=== PATIENT | female | born 1980 | race African-American/Black ===

== ENCOUNTER 2022-04-26 19:14 | Emergency (ER) | payer OTHER ==
[2022-04-26] MEDS ORDERED: Acetaminophen 500 MG TAB ONE (20:21)
[2022-04-26] MEDS ORDERED: Ondansetron PF 4 MG/2 ML Vial ONE (20:22)
[2022-04-26 20:41] LABS: #Monocytes 0.2 10x3/uL (0.0-1.1); #Neutrophils 1.6 10x3/uL (1.5-8.4); %Basophils 0.4 % (0.0-2.0); %Lymphocytes 27.2 % (18.0-47.0); %Monocytes 7.8 % (0.0-10.0); %Neutrophils 64.2 % (40.0-75.0); Hemoglobin 12.5 g/dL (12.0-15.5); Mean Corpuscular HGB CONC 35.1 g/dL (32.0-36.0); Mean Corpuscular Hemoglobin 25.5 pg (27.0-33.0); Mean Corpuscular Volume 72.7 fl (81.6-98.3); Mean Platelet Volume 10.2 fl (7.4-10.4); Platelet Count 136 10x3/uL (150-450); RBC Distribution Width 15.6 % (11.5-14.5); White Blood Cell (WBC) Count 2.4 10x3/uL (3.5-10.5)
[2022-04-26 20:50] LABS: BHCG - Serum Negative (NEGATIVE); Pregs Control Background? CLEAR/WHITE (CLR/WHITE); Pregs Control Bar Appear? YES (CONTROL BAR)
[2022-04-26 20:55] LABS: ALT (SGPT) 22 U/L (8-55); AST (SGOT) 40 U/L (5-34); Albumin 4.3 g/dL (3.5-5.0); Alkaline Phosphatase 63 U/L (40-110); Anion Gap 17 mmol/L (10-20); BUN (Urea Nitrogen) 20 mg/dL (7.0-18.7); Bilirubin, Total 0.4 mg/dL (0.2-1.2); Calc. Creatinine Clearance 0 mL/min (70-130); Calcium 9.1 mg/dL (7.8-10.44); Carbon Dioxide 18 mmol/L (22-29); Chloride 101 mmol/L (98-107); Estimated GFR 60; Globulin 3.5 g/dL (2.4-3.5); Glucose 82 mg/dL (70-105); Potassium 4.1 mmol/L (3.5-5.1); Protein, Total 7.8 g/dL (6.0-8.3); Sodium 132 mmol/L (136-145)
[2022-04-26 21:42] LABS: Bilirubin Neg (Negative); Blood, Urine 150 (Negative); Clarity Clear (Clear); Glucose, Urine (Dipstick) Normal (Negative); Ketone, Urine 150 mg/dL (Negative); Leukocyte Negative (Negative); Nitrite Negative (Negative); Protein, Urine (Dipstick) 30 mg/dl (Neg-Trace)
[2022-04-26 21:50] LABS: RBC/HPF 0-3 HPF (0-3)
[2022-04-26 21:51] LABS: Bacteria/HPF 1+ HPF (None Seen); Mucous/LPF 1+ LPF (<2+); WBC/HPF 0-3 HPF (0-3)
== END 2022-04-26 22:08 | disposition home or self-care (01) ==
LOC: CSHERS 19:14
DX: U07.1 COVID-19 (principal)
CPT/HCPCS: 36415; 71045; 80053; 81003; 81015; 83690; 84484; 84703; 85025; 93005; 96374; J2405

== ENCOUNTER 2023-09-20 10:30 | Emergency (ER) | payer BC, OTHER ==
[2023-09-20] MEDS ORDERED: Lidocaine 1% (PF) 30 ML VIAL ONE (11:18)
[2023-09-20] MEDS ORDERED: Bacitracin 1 PK ONE (11:19)
[2023-09-20] MEDS ORDERED: Boostrix 0.5 ML (Tdap) VIAL (>/=7 yrs of age) ONE (11:19)
== END 2023-09-20 12:39 | disposition home or self-care (01) ==
LOC: CSHERS 10:30
DX: S61.101A Unspecified open wound of right thumb with damage to nail, initial encounter (principal); W17.89XA Other fall from one level to another, initial encounter; Y93.41 Activity, dancing; Z21 Asymptomatic human immunodeficiency virus [HIV] infection status; Z23 Encounter for immunization
CPT/HCPCS: 11730; 90471; 90715; J2001

== ENCOUNTER 2024-07-16 20:10 | Emergency (ER) | payer BC, OTHER ==
[2024-07-16] MEDS ORDERED: Lorazepam 2 MG/ML VIAL ONE (20:34)
[2024-07-16 20:43] LABS: #Basophils 0.03 10x3/uL (0.0-0.2); #Eosinophils 0.12 10x3/uL (0.0-0.5); #Monocytes 0.58 10x3/uL (0.0-1.1); #Neutrophils 2.95 10x3/uL (1.5-8.4); %Basophils 0.5 % (0.0-2.0); %Eosinophils 1.9 % (0.0-6.0); %Lymphocytes 40.5 % (18.0-47.0); %Monocytes 9.3 % (0.0-10.0); %Neutrophils 47.5 % (40.0-75.0); Hematocrit 39.2 % (34.9-44.5); Mean Corpuscular HGB CONC 35.7 g/dL (32.0-36.0); Mean Corpuscular Hemoglobin 27.3 pg (27.0-33.0); Mean Corpuscular Volume 76.6 fL (81.6-98.3); Mean Platelet Volume 9.6 fL (7.4-10.4); Platelet Count 220 10x3/uL (150-450); RBC Distribution Width 13.8 % (11.5-14.5); Red Blood Cell (RBC) Count 5.12 10x6/uL (3.90-5.03); White Blood Cell (WBC) Count 6.2 10x3/uL (3.5-10.5)
[2024-07-16 20:57] LABS: ALT (SGPT) 22 U/L (8-55); AST (SGOT) 26 U/L (5-34); Albumin 4.4 g/dL (3.5-5.0); Alkaline Phosphatase 87 U/L (40-110); Anion Gap 18 mmol/L (10-20); BUN (Urea Nitrogen) 14 mg/dL (7.0-18.7); Bilirubin, Total 0.5 mg/dL (0.2-1.2); Calc. Creatinine Clearance 0 mL/min (70-130); Calcium 10.4 mg/dL (7.8-10.44); Carbon Dioxide 25 mmol/L (22-29); Chloride 101 mmol/L (98-107); Estimated GFR 84; Glucose 121 mg/dL (70-105); Potassium 4.7 mmol/L (3.5-5.1); Protein, Total 8.4 g/dL (6.0-8.3); Sodium 139 mmol/L (136-145)
[2024-07-16 21:03] LABS: Troponin I Less than 0.010 ng/mL (< 0.028)
== END 2024-07-16 21:32 | disposition home or self-care (01) ==
LOC: CSHERS 20:10
DX: R07.9 Chest pain, unspecified (principal)
CPT/HCPCS: 71045; 80053; 84484; 85025; 93005; 94760; 96374; J2060